=== PATIENT | female | born 1990 | race Caucasian/White ===

== ENCOUNTER 2018-02-28 15:52 | Emergency (ER) | payer OTHER ==
[~2018-02-28] VITALS: Ht 165.1 cm; Wt 54.4 kg
[2018-02-28] MEDS ORDERED: NEXPLANON68 MG TRANSDERM (16:04)
[2018-02-28] MEDS ORDERED: FLEXERIL PO (16:23)
[2018-02-28] MEDS ORDERED: NAPROSYN500 MG PO (16:23)
[2018-02-28 16:48] VITALS: BP 139/77
== END 2018-02-28 16:48 | disposition home or self-care (01) ==
LOC: M.ERS 15:52
DX: S29.012A Strain of muscle and tendon of back wall of thorax, initial encounter (principal); S46.812A Strain of other muscles, fascia and tendons at shoulder and upper arm level, left arm, initial encounter; X58.XXXA Exposure to other specified factors, initial encounter; Y93.89 Activity, other specified; Y92.89 Other specified places as the place of occurrence of the external cause; Y99.8 Other external cause status

== ENCOUNTER 2018-06-08 10:38 | Emergency (ER) | payer OTHER ==
[~2018-06-08] VITALS: Ht 157.5 cm; Wt 59.0 kg
[~2018-06-08 10:38] MED LIST: FLEXERIL PO; NAPROSYN500 MG PO; NEXPLANON68 MG TRANSDERM
[2018-06-08 10:43] VITALS: BP 152/89
[2018-06-08] MEDS ORDERED: AMOXICILLIN 50500 MG PO (10:59)
[2018-06-08] MEDS ORDERED: CLEOCIN HCL150 MG PO (11:05)
[2018-06-08] MEDS ORDERED: TRAMADOL 50 MG50 MG PO (11:05)
== END 2018-06-08 11:09 | disposition home or self-care (01) ==
LOC: M.ERS 10:38
DX: K08.89 Other specified disorders of teeth and supporting structures (principal); Z88.0 Allergy status to penicillin; Z88.1 Allergy status to other antibiotic agents; Z88.5 Allergy status to narcotic agent

== ENCOUNTER 2019-08-05 19:58 | Emergency (ER) | payer OTHER ==
[~2019-08-05] VITALS: Ht 157.5 cm; Wt 59.0 kg
[~2019-08-05 19:58] MED LIST changes: +AMOXICILLIN 50500 MG PO; +CLEOCIN HCL150 MG PO; +TRAMADOL 50 MG50 MG PO
[2019-08-05 20:30] LABS: URINE BILIRUBIN NEGATIVE (Negative); URINE BLOOD NEGATIVE (Negative); URINE CLARITY CLEAR; URINE COLOR YELLOW; URINE GLUCOSE-RANDOM NEGATIVE (Negative); URINE KETONES TRACE (Negative); URINE LEUKOCYTES-REFLEX TRACE (Negative); URINE NITRITE-REFLEX NEGATIVE (Negative); URINE PROTEIN NEGATIVE (Negative); URINE SPECIFIC GRAVITY 1.025 (1.005-1.030); URINE UROBILINOGEN 0.2 E.U./dl (0.2-1.0)
[2019-08-05 20:39] LABS: SQUAMOUS >10 Many /LPF (0-3)
[2019-08-05 20:40] LABS: MUCUS 0-3 Light strn/LPF (None Seen); URINE WBC-REFLEX 6-15 Few /HPF (0-5)
[2019-08-05 20:41] LABS: CASTS None Seen /LPF (None Seen); CRYSTALS None Seen /LPF (None Seen); URINE RBC None Seen /HPF (0-2)
[2019-08-05 20:47] LABS: ABSOLUTE BASOPHILS 0.1 thou/uL (0.0-0.2); ABSOLUTE EOSINOPHILS 0.1 thou/uL (0.0-0.7); ABSOLUTE LYMPHOCYTES 2.3 thou/uL (0.8-5.3); ABSOLUTE MONOCYTES 0.5 thou/uL (0.0-1.2); ABSOLUTE NEUTROPHILS 5.5 thou/uL (1.6-8.1); BASOPHILS 1.2 %; EOSINOPHILS 1.4 %; HEMOGLOBIN 13.2 gm/dL (12.0-15.0); LYMPHOCYTES 26.7 %; MCHC 33.9 g/dL (28.0-37.0); MCV 88.6 fL (80.0-100.0); MONOCYTES 6.3 %; NUCLEATED RBCS 0 /100WBC; PLATELET COUNT* 233 thou/uL (150-400); POLYS 64.4 %; RDW-CV 13.3 % (10.5-14.5); WBC 8.5 thou/uL (4.0-11.0)
[2019-08-05 20:57] LABS: CALCIUM 8.9 mg/dL (8.5-10.1)
[2019-08-05 21:01] LABS: ALBUMIN 4.7 g/dL (3.4-5.0); TOTAL BILIRUBIN 1.7 mg/dL (<0.1-1.0)
[2019-08-05] MEDS ORDERED: MACROBID 100 M100 MG PO (22:01)
[2019-08-05] MEDS ORDERED: ONDANSETRON HCL4 M2 PO (22:02)
[2019-08-05] MEDS ORDERED: NORCO 5-325 TA1 EAC1 PO (22:02)
[2019-08-06 00:40] VITALS: BP 102/50
== END 2019-08-06 00:41 | disposition home or self-care (01) ==
LOC: M.ERS 19:58
PROVIDERS: Nurse Practitioner Family
DX: N39.0 Urinary tract infection, site not specified (principal); R19.7 Diarrhea, unspecified; Z88.5 Allergy status to narcotic agent; Z88.0 Allergy status to penicillin